=== PATIENT | female | born 1955 | race Hispanic/Latino ===

== ENCOUNTER → 2017-08-26 | Outpatient (CLI) | payer OTHER | END | disposition home or self-care (01) | LOC: SHCH 15:57 | PROVIDERS: ATTEND Internal Medicine Cardiovascular Disease | DX: I31.3 Pericardial effusion (noninflammatory) (principal); R00.2 Palpitations | CPT/HCPCS: 93306 ==

== ENCOUNTER → 2018-01-16 | Outpatient (CLI) | payer OTHER | END | disposition home or self-care (01) | LOC: RAH 11:07 | PROVIDERS: ATTEND Internal Medicine | DX: J06.9 Acute upper respiratory infection, unspecified (principal) | CPT/HCPCS: 71046 ==

== ENCOUNTER → 2018-02-05 | Outpatient (CLI) | payer OTHER ==
[~2018-02-05] MED LIST: ALBUTEROL SULFATE 0.083% 2.5 MG/3 ML INH IH ONE
== END | disposition home or self-care (01) ==
LOC: RESP 08:41
PROVIDERS: ATTEND Internal Medicine
DX: J40 Bronchitis, not specified as acute or chronic (principal); J98.01 Acute bronchospasm
CPT/HCPCS: 94060; 94727; 94729

== ENCOUNTER 2018-04-13 22:56 | Emergency (ER) | payer OTHER ==
[2018-04-13] MEDS ORDERED: METOCLOPRAMIDE 10 MG/2 ML VIAL ONE (23:13)
[2018-04-13 23:53] LABS: BASOPHILS % (AUTO) 1.3 % (0.0-5.0); EOSINOPHILS % (AUTO) 2.1 % (0.0-8.0); LYMPHOCYTES % (AUTO) 17.9 % (21.0-51.0); MEAN CORPUSCULAR HEMOGLOBIN 31.9 pg (27.0-33.0); MEAN CORPUSCULAR HGB CONC 34.1 g/dL (32.0-36.0); MEAN CORPUSCULAR VOLUME 93.6 fL (79-99); NEUTROPHILS % (AUTO) 71.7 % (40.0-77.0); PLATELET COUNT (AUTO) 252 K/uL (130-400); RED BLOOD CELL COUNT(AUTO) 3.52 MIL/uL (4.00-5.50); RED CELL DISTRIBUTION WIDTH 13.7 % (11.0-15.5); WHITE BLOOD COUNT (AUTO) 9.1 K/uL (4.8-10.8)
[2018-04-13 23:54] LABS: APPEARANCE,URINE Clear (CLEAR); BILIRUBIN,URINE Negative (NEGATIVE); COLOR,URINE Yellow (YELLOW); GLUCOSE, URINE (UA) Negative (NEGATIVE); KETONES,URINE Negative (NEGATIVE); LEUKOCYTE ESTERASE ,URINE Trace (NEGATIVE); NITRATE,URINE Negative (NEGATIVE); OCCULT BLOOD,URINE Negative (NEGATIVE); PH,URINE 6.5 (5.0-8.0); PROTEIN,URINE Negative (NEGATIVE); UROBILINOGEN,URINE 0.2 mg/dL (0.2-1.0)
[2018-04-14 00:18] LABS: BACTERIA,URINE None Seen /HPF (None Seen); RBC,URINE None Seen /HPF (0-1); WBC,URINE 0-1 /HPF (0-1)
[2018-04-14] MEDS ORDERED: KETOROLAC TROMETHAMINE 30MG/ML ONE (00:19)
[2018-04-14 00:33] LABS: CREATININE 0.8 mg/dL (0.5-1.5)
[2018-04-14 00:38] LABS: ALBUMIN 3.4 g/dL (3.5-5.0); BILIRUBIN,TOTAL 0.2 mg/dL (0.2-1.0); TOTAL PROTEIN, SERUM 7.1 g/dL (6.0-8.3)
[2018-04-14] MEDS ORDERED: POTASSIUM CHLORIDE 20 MEQ ERTAB PO ONE (00:46)
== END 2018-04-14 01:06 | disposition home or self-care (01) ==
LOC: EDH 22:56
DX: R51 Headache (principal); H53.9 Unspecified visual disturbance; I10 Essential (primary) hypertension; E78.5 Hyperlipidemia, unspecified; E07.9 Disorder of thyroid, unspecified; Z98.51 Tubal ligation status
CPT/HCPCS: 36415 ×2; 70450; 80053; 81001; 85025; 96374; 96375; 99284; J1885; J2765

== ENCOUNTER → 2018-05-02 | Outpatient (CLI) | payer OTHER | END | disposition home or self-care (01) | LOC: SHCH 07:36 | PROVIDERS: ATTEND Internal Medicine Cardiovascular Disease | DX: I10 Essential (primary) hypertension (principal) | CPT/HCPCS: 93975 ==

== ENCOUNTER → 2018-05-08 | Outpatient (CLI) | payer OTHER ==
[~2018-05-08] MED LIST changes: -ALBUTEROL SULFATE 0.083% 2.5 MG/3 ML INH IH ONE; +IOHEXOL-350 50ML VIAL IV ONE; +IOHEXOL-350 75 ML VIAL IV ONE
== END | disposition home or self-care (01) ==
LOC: RAH 07:40
PROVIDERS: ATTEND Internal Medicine
DX: J40 Bronchitis, not specified as acute or chronic (principal)
CPT/HCPCS: 71260; Q9967

== ENCOUNTER 2018-12-16 22:20 | Emergency (ER) | payer OTHER ==
[2018-12-16] MEDS ORDERED: ASPIRIN 325 MG TABLET ONE (22:32)
[2018-12-16] MEDS ORDERED: HYDRALAZINE HCL 20 MG/ML VIAL ONE (23:05)
[2018-12-16] MEDS ORDERED: SODIUM CHLORIDE 0.9% 500ML 500 ML IV ONE (23:05)
[2018-12-16 23:10] LABS: BASOPHILS % (AUTO) 1.1 % (0.0-5.0); EOSINOPHILS % (AUTO) 3.2 % (0.0-8.0); HEMATOCRIT 37.9 % (36-48); LYMPHOCYTES % (AUTO) 24.6 % (21.0-51.0); MEAN CORPUSCULAR HEMOGLOBIN 31.8 pg (27.0-33.0); MEAN CORPUSCULAR HGB CONC 34.4 g/dL (32.0-36.0); MEAN CORPUSCULAR VOLUME 92.5 fL (79-99); MONOCYTES % (AUTO) 8.6 % (3.0-13.0); NEUTROPHILS % (AUTO) 62.5 % (40.0-77.0); PLATELET COUNT (AUTO) 268 K/uL (130-400); POTASSIUM 3.5 mmol/L (3.5-5.1); RED CELL DISTRIBUTION WIDTH 13.1 % (11.0-15.5); WHITE BLOOD COUNT (AUTO) 9.6 K/uL (4.8-10.8)
[2018-12-16 23:23] LABS: ALBUMIN 3.5 g/dL (3.5-5.0); BILIRUBIN,TOTAL 0.2 mg/dL (0.2-1.0); CREATININE 0.7 mg/dL (0.5-1.5); TOTAL PROTEIN, SERUM 6.9 g/dL (6.0-8.3)
[2018-12-16 23:51] LABS: B-TYPE NATRIURETIC PEPTIDE 143 pg/mL (0-100)
[2018-12-17 00:13] LABS: APPEARANCE,URINE Clear (CLEAR); BILIRUBIN,URINE Negative (NEGATIVE); COLOR,URINE Yellow (YELLOW); GLUCOSE, URINE (UA) Negative (NEGATIVE); KETONES,URINE Negative (NEGATIVE); LEUKOCYTE ESTERASE ,URINE Negative (NEGATIVE); NITRATE,URINE Negative (NEGATIVE); OCCULT BLOOD,URINE Negative (NEGATIVE); PH,URINE 7.5 (5.0-8.0); PROTEIN,URINE Negative (NEGATIVE)
[2018-12-17] MEDS ORDERED: SODIUM CHLORIDE 0.9% 1000ML 1,000 ML IV ONE (00:45)
== END 2018-12-17 03:12 | disposition home or self-care (01) ==
LOC: EDH 22:20
DX: R07.89 Other chest pain (principal); I10 Essential (primary) hypertension; E78.5 Hyperlipidemia, unspecified; E07.9 Disorder of thyroid, unspecified
CPT/HCPCS: 36415; 71045; 80053; 81003; 82550; 83880; 84484 ×2; 85025; 93005; 96365; 99285; J0360; J7030; J7040

== ENCOUNTER 2019-03-30 21:02 | Observation (INO) | payer OTHER ==
[~2019-03-30] VITALS: Ht 162.6 cm; Wt 112.4 kg
[2019-03-30 22:37] LABS: BASOPHILS % (AUTO) 0.4 % (0.0-5.0); EOSINOPHILS % (AUTO) 1.6 % (0.0-8.0); HEMATOCRIT 43.5 % (36-48); LYMPHOCYTES % (AUTO) 25.1 % (21.0-51.0); MEAN CORPUSCULAR HEMOGLOBIN 30.5 pg (27.0-33.0); MEAN CORPUSCULAR HGB CONC 33.3 g/dL (32.0-36.0); MEAN CORPUSCULAR VOLUME 91.4 fL (79-99); MONOCYTES % (AUTO) 7.4 % (3.0-13.0); NEUTROPHILS % (AUTO) 65.1 % (40.0-77.0); PLATELET COUNT (AUTO) 339 K/uL (130-400); RED BLOOD CELL COUNT(AUTO) 4.76 MIL/uL (4.00-5.50); RED CELL DISTRIBUTION WIDTH 12.4 % (11.0-15.5); WHITE BLOOD COUNT (AUTO) 13.1 K/uL (4.8-10.8)
[2019-03-30 22:52] LABS: CREATININE 0.7 mg/dL (0.5-1.5); POTASSIUM 3.3 mmol/L (3.5-5.1)
[2019-03-30 23:00] LABS: ALBUMIN 3.7 g/dL (3.5-5.0); BILIRUBIN,TOTAL 0.4 mg/dL (0.2-1.0); TOTAL PROTEIN, SERUM 7.6 g/dL (6.0-8.3)
[2019-03-30 23:01] LABS: INR 0.97 (0.85-1.15); PARTIAL THROMBOPLASTIN TIME 29.9 SEC (26.3-35.5); PROTHROMBIN TIME 10.2 SEC (9.6-11.6)
[2019-03-30] MEDS ORDERED: LACTULOSE 20 GM/30 ML UDCUP PO PRN (23:30)
[2019-03-30] MEDS ORDERED: NITROGLYCERIN 0.4 MG SL TAB SL PRN (23:30)
[2019-03-30] MEDS ORDERED: ACETAMINOPHEN 325 MG TAB PO PRN ×2 (23:30)
[2019-03-30] MEDS ORDERED: ONDANSETRON HCL 4 MG/2 ML VIAL IV PRN (23:30)
[2019-03-30 23:39] LABS: B-TYPE NATRIURETIC PEPTIDE 337 pg/mL (0-100)
[2019-03-31] VITALS (7 sets, daily range): BP systolic 116–152; BP diastolic 66–95
[2019-03-31] MEDS ORDERED: ATEN50TA PO ×2 (01:22)
[2019-03-31] MEDS ORDERED: APIX5TAB PO (01:22)
[2019-03-31] MEDS ORDERED: LOSA1TAB42 PO (01:22)
[2019-03-31] MEDS ORDERED: MULT1TAB70 PO (01:22)
[2019-03-31] MEDS ORDERED: AMLO5TAB9 PO (01:22)
[2019-03-31] MEDS ORDERED: LEVO75 PO (01:22)
[2019-03-31] MEDS ORDERED: FLEC100T3 PO (01:22)
[2019-03-31] MEDS ORDERED: PRAV40TA3 PO (01:22)
[2019-03-31] MEDS ORDERED: FURO20TA4 PO (01:22)
[2019-03-31] MEDS ORDERED: ESOM20CA31 PO (01:22)
--- NOTE | 2019-03-31 01:48 | NUR ---
HOME MEDS Paged [facility]EE[facility] Supervisor [employer] to advised pt.s home meds had been entered.
--- NOTE | 2019-03-31 01:58 | NUR ---
[employer] WORK SUPERVISOR Notified HEENA [employer] Consultant,as per Rafiq Rn from ER,Dr Guthrie wanted a 2 d echo in am,did not see order,HEENA said he will review the chart.Customs Consultant also aware pt.s a fib hr 115.Pt asymptomatic,as per report from Er Dr Guthrie does not want to order any new meds for now.
[2019-03-31] MEDS ORDERED: LIDOCAINE HCL-MPF 1% 2ML VIAL IV PRN (02:00)
[2019-03-31] MEDS ORDERED: POTASSIUM CHLORIDE 10% ELIXIR 20 MEQ/15 ML UDCUP PO PRN (02:00)
[2019-03-31] MEDS ORDERED: POTASSIUM CHLORIDE 10MEQ/100ML 100 ML IV PRN (02:00)
[2019-03-31 05:15] LABS: BASOPHILS % (AUTO) 0.4 % (0.0-5.0); EOSINOPHILS % (AUTO) 1.8 % (0.0-8.0); HEMATOCRIT 41.2 % (36-48); LYMPHOCYTES % (AUTO) 30.2 % (21.0-51.0); MEAN CORPUSCULAR HEMOGLOBIN 30.4 pg (27.0-33.0); MEAN CORPUSCULAR VOLUME 92.2 fL (79-99); NEUTROPHILS % (AUTO) 59.4 % (40.0-77.0); PLATELET COUNT (AUTO) 315 K/uL (130-400); RED BLOOD CELL COUNT(AUTO) 4.47 MIL/uL (4.00-5.50); RED CELL DISTRIBUTION WIDTH 12.6 % (11.0-15.5); WHITE BLOOD COUNT (AUTO) 9.2 K/uL (4.8-10.8)
[2019-03-31] MEDS ORDERED: LEVOTHYROXINE 75 MCG TABLET ONE (05:28)
[2019-03-31 05:38] LABS: CREATININE 0.7 mg/dL (0.5-1.5)
[2019-03-31 05:51] LABS: POTASSIUM 2.9 mmol/L (3.5-5.1)
--- NOTE | 2019-03-31 06:00 | NUR ---
HYPOKALEMIA Re K+ 2.9,k protocol initiated.
[2019-03-31] MEDS: POTASSIUM CHLORIDE 20 MEQ ERTAB PO PRN ×3 (06:01→14:16)
[2019-03-31] MEDS: LEVOTHYROXINE 75 MCG TABLET PO SCH (06:02)
[2019-03-31] MEDS ORDERED: FUROSEMIDE 20 MG TABLET PO SCH (09:00)
[2019-03-31] MEDS ORDERED: NON-FORMULARY MEDICATION 1 EACH (Losartan/Hydrochlorothiazide (Losartan-Hctz 100-12.5 mg T PO SCH (09:00)
[2019-03-31] MEDS ORDERED: HYDROCHLOROTHIAZIDE 25 MG TABLET PO SCH (09:00)
[2019-03-31] MEDS ORDERED: AMLODIPINE BESYLATE 5 MG TAB PO SCH (09:00)
[2019-03-31] MEDS ORDERED: LOSARTAN 100 MG TABLET PO SCH (09:00)
[2019-03-31] MEDS: APIXABAN 5 MG TABLET PO SCH ×2 (10:07→20:05)
[2019-03-31] MEDS: FAMOTIDINE 20MG TAB 20 MG TAB PO SCH ×2 (10:07→20:05)
[2019-03-31] MEDS: ASPIRIN 81MG TAB.CHEW PO SCH (10:25)
[2019-03-31] MEDS: METOPROLOL TARTRATE 1 MG/ML 5ML VIAL IV PRN ×2 (10:34→14:08)
[2019-03-31] MEDS ORDERED: METOPROLOL TARTRATE 25 MG TAB PO STA (14:26)
[2019-03-31] MEDS ORDERED: POTASSIUM CHLORIDE 20 MEQ ERTAB PO SCH (14:30)
[2019-03-31] MEDS ORDERED: METOPROLOL TARTRATE 1 MG/ML 5ML VIAL IV SCH (16:00)
--- NOTE | 2019-03-31 16:40 | NUR ---
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 Addendum: 04/01/19 at 1641 by DELMY GREEN RN CM Amended: Links added.
[2019-03-31] MEDS: FLECAINIDE ACETATE 100 MG TABLET PO SCH (20:05)
[2019-03-31] MEDS: METOPROLOL TARTRATE 50 MG TAB PO SCH (20:05)
[2019-03-31] MEDS ORDERED: ATORVASTATIN CALCIUM 20 MG TABLET PO SCH (21:00)
[2019-03-31] MEDS ORDERED: METOPROLOL TARTRATE 25 MG TAB PO SCH (21:00)
--- NOTE | 2019-03-31 22:02 | NUR ---
A FIB Received pt with tele a fib 130's.Pt asymptomatic.Due meds given,Denies chest pain or sob.Pt walking around the hallway with her .Will cont monitor.
--- NOTE | 2019-03-31 22:07 | NUR ---
HR Pt .s HR afib 112 now.
--- NOTE | 2019-04-01 00:33 | NUR ---
TELE Pt asleep,as per groundwater monitoring technician,heart rate goes up and down,right now a fib 80's.
[2019-04-01 03:58] VITALS: BP 131/68
--- NOTE | 2019-04-01 05:40 | NUR ---
SLEPT Pt slept well.Voiced no complaints of chest pain or discomfort.
[2019-04-01] MEDS: LEVOTHYROXINE 75 MCG TABLET PO SCH (05:54)
[2019-04-01 06:31] LABS: BASOPHILS % (AUTO) 0.4 % (0.0-5.0); EOSINOPHILS % (AUTO) 4.1 % (0.0-8.0); HEMATOCRIT 40.1 % (36-48); LYMPHOCYTES % (AUTO) 33.6 % (21.0-51.0); MEAN CORPUSCULAR HEMOGLOBIN 30.6 pg (27.0-33.0); MEAN CORPUSCULAR HGB CONC 33.2 g/dL (32.0-36.0); MEAN CORPUSCULAR VOLUME 92.4 fL (79-99); MONOCYTES % (AUTO) 8.2 % (3.0-13.0); NEUTROPHILS % (AUTO) 53.4 % (40.0-77.0); PLATELET COUNT (AUTO) 314 K/uL (130-400); RED BLOOD CELL COUNT(AUTO) 4.34 MIL/uL (4.00-5.50); RED CELL DISTRIBUTION WIDTH 12.9 % (11.0-15.5); WHITE BLOOD COUNT (AUTO) 7.1 K/uL (4.8-10.8)
[2019-04-01 06:33] LABS: BILIRUBIN,TOTAL 0.4 mg/dL (0.2-1.0); CREATININE 0.6 mg/dL (0.5-1.5); MAGNESIUM 2.2 mg/dL (1.80-2.40); POTASSIUM 3.6 mmol/L (3.5-5.1); TOTAL PROTEIN, SERUM 6.7 g/dL (6.0-8.3)
[2019-04-01] MEDS: POTASSIUM CHLORIDE 20 MEQ ERTAB PO PRN ×2 (06:52→10:56)
[2019-04-01 08:00] VITALS: BP 151/76
[2019-04-01] MEDS ORDERED: LOSARTAN 50 MG TABLET PO SCH ×2 (09:00)
[2019-04-01] MEDS ORDERED: AMILORIDE HCL 5 MG TABLET PO SCH (09:00)
[2019-04-01] MEDS ORDERED: HYDROCHLOROTHIAZIDE 25 MG TABLET PO SCH (09:00)
[2019-04-01] MEDS: APIXABAN 5 MG TABLET PO SCH (10:55)
[2019-04-01] MEDS: FAMOTIDINE 20MG TAB 20 MG TAB PO SCH (10:55)
[2019-04-01] MEDS: METOPROLOL TARTRATE 50 MG TAB PO SCH (10:56)
[2019-04-01] MEDS: FLECAINIDE ACETATE 100 MG TABLET PO SCH (10:57)
[2019-04-01] MEDS: ASPIRIN 81MG TAB.CHEW PO SCH (10:58)
[2019-04-01 11:47] VITALS: BP 127/76
[2019-04-01] MEDS ORDERED: ASPI-1005 PO (11:47)
[2019-04-01] MEDS ORDERED: AMIL5TAB8 PO (11:47)
[2019-04-01] MEDS ORDERED: Flecainide Acetate PO (11:47)
[2019-04-01] MEDS ORDERED: HYDR25TA PO (11:47)
[2019-04-01] MEDS ORDERED: METO50 PO (11:47)
[2019-04-01] MEDS ORDERED: LOSA50TA2 PO (11:47)
== END 2019-04-01 15:55 | disposition home or self-care (01) ==
LOC: EDH 21:02 → INTOOBSV 21:03 → EDHIP 21:03 → OBSVTOIN 21:03 → 4CH 03-31 00:30
PROVIDERS: ADMIT Family Medicine; ATTEND Family Medicine
DX: I47.1 Supraventricular tachycardia (principal); E87.6 Hypokalemia; I48.91 Unspecified atrial fibrillation; E66.9 Obesity, unspecified; I10 Essential (primary) hypertension; E03.9 Hypothyroidism, unspecified; E78.5 Hyperlipidemia, unspecified; Z79.82 Long term (current) use of aspirin; Z79.899 Other long term (current) drug therapy; Z79.02 Long term (current) use of antithrombotics/antiplatelets
CPT/HCPCS: 36415 ×3; 71045; 80048; 80053 ×2; 82550; 83735 ×2; 83880; 84132; 84443; 84484 ×3; 85025 ×3; 85610; 85730; 93005; 93306; 96365; 96375; 96376; 99284; A4510; G0378 ×40; J3490 ×4

== ENCOUNTER → 2019-04-15 | Outpatient (CLI) | payer OTHER ==
[~2019-04-15] MED LIST changes: +AMIL5TAB8 PO; +APIX5TAB PO; +ASPI-1005 PO; +ESOM20CA31 PO; +Flecainide Acetate PO; +HYDR25TA PO; -IOHEXOL-350 50ML VIAL IV ONE; -IOHEXOL-350 75 ML VIAL IV ONE; +LEVO75 PO; +LOSA50TA2 PO; +METO50 PO; +MULT1TAB70 PO; +PRAV40TA3 PO
== END | disposition home or self-care (01) ==
LOC: RAH 07:36
PROVIDERS: ATTEND Internal Medicine
DX: I11.9 Hypertensive heart disease without heart failure (principal); I48.91 Unspecified atrial fibrillation
CPT/HCPCS: 76770; 93975

== ENCOUNTER 2019-04-17 11:53 | Observation (INO) | payer OTHER ==
[~2019-04-17] VITALS: Ht 162.6 cm; Wt 110.7 kg
[2019-04-17] MEDS ORDERED: METOPROLOL TARTRATE 1 MG/ML 5ML VIAL IV ONE ×3 (12:18→18:45)
[2019-04-17] MEDS ORDERED: ASPIRIN 325 MG TABLET ONE (12:19)
[2019-04-17 12:37] LABS: BASOPHILS % (AUTO) 0.4 % (0.0-5.0); EOSINOPHILS % (AUTO) 2.9 % (0.0-8.0); HEMATOCRIT 43.4 % (36-48); LYMPHOCYTES % (AUTO) 25.8 % (21.0-51.0); MEAN CORPUSCULAR HEMOGLOBIN 30.5 pg (27.0-33.0); MEAN CORPUSCULAR HGB CONC 32.9 g/dL (32.0-36.0); MEAN CORPUSCULAR VOLUME 92.5 fL (79-99); MONOCYTES % (AUTO) 9.6 % (3.0-13.0); NEUTROPHILS % (AUTO) 61.1 % (40.0-77.0); PLATELET COUNT (AUTO) 303 K/uL (130-400); RED BLOOD CELL COUNT(AUTO) 4.69 MIL/uL (4.00-5.50); RED CELL DISTRIBUTION WIDTH 12.7 % (11.0-15.5)
[2019-04-17 12:55] LABS: INR 0.97 (0.85-1.15); PROTHROMBIN TIME 10.2 SEC (9.6-11.6)
[2019-04-17] MEDS ORDERED: ESMOLOL HCL 10 MG/ML 10 ML VIAL ONE (13:01)
[2019-04-17 13:02] LABS: B-TYPE NATRIURETIC PEPTIDE 405 pg/mL (0-100); CREATININE 0.7 mg/dL (0.5-1.5); POTASSIUM 4.1 mmol/L (3.5-5.1)
[2019-04-17 13:06] LABS: ALBUMIN 3.5 g/dL (3.5-5.0); BILIRUBIN,TOTAL 0.3 mg/dL (0.2-1.0); TOTAL PROTEIN, SERUM 7.9 g/dL (6.0-8.3)
[2019-04-17] MEDS ORDERED: DILTIAZEM HCL 125 MG/25 ML VIAL IV ONE (13:08)
[2019-04-17] MEDS ORDERED: SODIUM CHLORIDE 0.9% 100 ML IV ONE (13:08)
[2019-04-17] MEDS ORDERED: ESMOLOL HCL 2500 MG/NACL 250 ML IV PRN (13:30)
[2019-04-17] MEDS ORDERED: ONDANSETRON HCL 4 MG/2 ML VIAL IVP PRN (14:15)
[2019-04-17] MEDS ORDERED: ENOXAPARIN SODIUM 40 MG/0.4 ML SYRINGE SQ SCH (14:15)
[2019-04-17] MEDS ORDERED: ACETAMINOPHEN 325 MG TAB PO PRN (14:15)
[2019-04-17 14:17] LABS: APPEARANCE,URINE Clear (CLEAR); BILIRUBIN,URINE Negative (NEGATIVE); COLOR,URINE Yellow (YELLOW); GLUCOSE, URINE (UA) Negative (NEGATIVE); KETONES,URINE Negative (NEGATIVE); LEUKOCYTE ESTERASE ,URINE Trace (NEGATIVE); NITRATE,URINE Negative (NEGATIVE); OCCULT BLOOD,URINE Negative (NEGATIVE); PH,URINE 7.5 (5.0-8.0); PROTEIN,URINE Negative (NEGATIVE); UROBILINOGEN,URINE 0.2 mg/dL (0.2-1.0)
[2019-04-17 14:52] LABS: BACTERIA,URINE Rare /HPF (None Seen); RBC,URINE None Seen /HPF (0-1); WBC,URINE 0-1 /HPF (0-1)
[2019-04-17 14:53] LABS: SQUAMOUS EPITHELIAL CELL,UR 0-2 /HPF (0-2)
[2019-04-17] MEDS ORDERED: METOPROLOL TARTRATE 50 MG TAB ONE (19:11)
[2019-04-17] MEDS: METOPROLOL TARTRATE 50 MG TAB PO SCH (21:00)
[2019-04-17] MEDS: FLECAINIDE ACETATE 100 MG TABLET PO SCH (21:00)
[2019-04-17] MEDS ORDERED: DILTIAZEM 125MG+100 ML NS 125 ML IV SCH (21:30)
[2019-04-17] MEDS ORDERED: METOPROLOL TARTRATE 1 MG/ML 5ML VIAL IV PRN (21:30)
[2019-04-17] MEDS: ATORVASTATIN CALCIUM 10 MG TABLET PO SCH (22:40)
[2019-04-17] MEDS: FAMOTIDINE/PF 20 MG/2 ML VIAL IV SCH (22:40)
[2019-04-17 23:00] VITALS: BP 159/92
[2019-04-18 03:56] VITALS: BP 120/63
[2019-04-18 04:01] LABS: BASOPHILS % (AUTO) 0.5 % (0.0-5.0); EOSINOPHILS % (AUTO) 3.4 % (0.0-8.0); HEMATOCRIT 38.7 % (36-48); LYMPHOCYTES % (AUTO) 28.4 % (21.0-51.0); MEAN CORPUSCULAR HEMOGLOBIN 30.2 pg (27.0-33.0); MEAN CORPUSCULAR HGB CONC 32.3 g/dL (32.0-36.0); MEAN CORPUSCULAR VOLUME 93.5 fL (79-99); MONOCYTES % (AUTO) 9.2 % (3.0-13.0); NEUTROPHILS % (AUTO) 58.2 % (40.0-77.0); PLATELET COUNT (AUTO) 284 K/uL (130-400); RED BLOOD CELL COUNT(AUTO) 4.14 MIL/uL (4.00-5.50); RED CELL DISTRIBUTION WIDTH 13.1 % (11.0-15.5); WHITE BLOOD COUNT (AUTO) 8.6 K/uL (4.8-10.8)
[2019-04-18 04:16] LABS: ALBUMIN 3.1 g/dL (3.5-5.0); BILIRUBIN,TOTAL 0.3 mg/dL (0.2-1.0); CREATININE 0.8 mg/dL (0.5-1.5); POTASSIUM 3.8 mmol/L (3.5-5.1); TOTAL PROTEIN, SERUM 6.7 g/dL (6.0-8.3)
[2019-04-18] MEDS: LEVOTHYROXINE 75 MCG TABLET PO SCH (06:46)
[2019-04-18 07:50] VITALS: BP 145/89
[2019-04-18] MEDS: ASPIRIN 81MG TAB.CHEW PO SCH (09:00)
[2019-04-18] MEDS ORDERED: ENOXAPARIN SODIUM 40 MG/0.4 ML SYRINGE SQ SCH (09:00)
[2019-04-18] MEDS: FAMOTIDINE/PF 20 MG/2 ML VIAL IV SCH ×2 (09:00→20:22)
[2019-04-18] MEDS: FLECAINIDE ACETATE 100 MG TABLET PO SCH ×2 (09:04→20:23)
[2019-04-18] MEDS: APIXABAN 5 MG TABLET PO SCH ×2 (09:04→20:23)
[2019-04-18] MEDS: AMILORIDE HCL 5 MG TABLET PO SCH (09:04)
[2019-04-18] MEDS: METOPROLOL TARTRATE 50 MG TAB PO SCH ×2 (09:05→20:22)
[2019-04-18] MEDS: HYDROCHLOROTHIAZIDE 25 MG TABLET PO SCH (09:05)
[2019-04-18] MEDS: LOSARTAN 50 MG TABLET PO SCH (09:05)
[2019-04-18 11:30] VITALS: BP 132/70
[2019-04-18 15:30] VITALS: BP 151/82
--- NOTE | 2019-04-18 16:58 | NUR ---
DR. Carrie DAWSON IN ROOM SPEAKING WITH PT. AND VISITORS AT BEDSIDE RE:PLAN OF CARE.
[2019-04-18 20:03] VITALS: BP 152/74
[2019-04-18] MEDS: ATORVASTATIN CALCIUM 10 MG TABLET PO SCH (20:23)
[2019-04-18 23:33] VITALS: BP 126/56
[2019-04-19 04:16] VITALS: BP 144/68
[2019-04-19 04:32] VITALS: BP 139/65
[2019-04-19 05:11] LABS: BASOPHILS % (AUTO) 0.4 % (0.0-5.0); EOSINOPHILS % (AUTO) 4.2 % (0.0-8.0); HEMATOCRIT 35.8 % (36-48); MEAN CORPUSCULAR HEMOGLOBIN 30.8 pg (27.0-33.0); MEAN CORPUSCULAR HGB CONC 33.5 g/dL (32.0-36.0); NEUTROPHILS % (AUTO) 56.1 % (40.0-77.0); PLATELET COUNT (AUTO) 246 K/uL (130-400); RED BLOOD CELL COUNT(AUTO) 3.89 MIL/uL (4.00-5.50); RED CELL DISTRIBUTION WIDTH 12.9 % (11.0-15.5); WHITE BLOOD COUNT (AUTO) 7.2 K/uL (4.8-10.8)
[2019-04-19 05:51] LABS: ALBUMIN 2.9 g/dL (3.5-5.0); BILIRUBIN,TOTAL 0.4 mg/dL (0.2-1.0); CREATININE 0.7 mg/dL (0.5-1.5); MAGNESIUM 2.4 mg/dL (1.80-2.40); POTASSIUM 3.8 mmol/L (3.5-5.1); TOTAL PROTEIN, SERUM 6.4 g/dL (6.0-8.3)
[2019-04-19] MEDS: LEVOTHYROXINE 75 MCG TABLET PO SCH (06:14)
[2019-04-19 07:30] VITALS: BP 154/79
[2019-04-19] MEDS: FAMOTIDINE/PF 20 MG/2 ML VIAL IV SCH (09:00)
[2019-04-19] MEDS: METOPROLOL TARTRATE 50 MG TAB PO SCH (09:35)
[2019-04-19] MEDS: FLECAINIDE ACETATE 100 MG TABLET PO SCH (09:35)
[2019-04-19] MEDS: HYDROCHLOROTHIAZIDE 25 MG TABLET PO SCH (09:35)
[2019-04-19] MEDS: AMILORIDE HCL 5 MG TABLET PO SCH (09:36)
[2019-04-19] MEDS: APIXABAN 5 MG TABLET PO SCH (09:36)
[2019-04-19] MEDS: LOSARTAN 50 MG TABLET PO SCH (09:36)
[2019-04-19] MEDS: ASPIRIN 81MG TAB.CHEW PO SCH (09:36)
[2019-04-19 11:30] VITALS: BP 148/87
--- NOTE | 2019-04-19 12:46 | NUR ---
DC PLAN VISITED WITH PATIENT. PATIENT LIVES WITH SPOUSE. INDEPENDENT ABLE TO PERFORM ADL'S. PATIENT HAS NO SERVICES OR DME'S. FEELS SAFE TO RETURN HOME. Addendum: 04/19/19 at 1247 by BASILIO RAE RN CM Amended: Links added.
== END 2019-04-19 17:50 | disposition home or self-care (01) ==
LOC: EDH 11:53 → EDHIP 14:06 → INTOOBSV 14:06 → 2DH 21:44
PROVIDERS: ADMIT Internal Medicine; ATTEND Internal Medicine
DX: I49.8 Other specified cardiac arrhythmias (principal); R00.0 Tachycardia, unspecified; I48.91 Unspecified atrial fibrillation; I11.0 Hypertensive heart disease with heart failure; E03.9 Hypothyroidism, unspecified; E78.5 Hyperlipidemia, unspecified; D68.59 Other primary thrombophilia; E66.9 Obesity, unspecified; Z79.01 Long term (current) use of anticoagulants; Z79.899 Other long term (current) drug therapy; Z68.41 Body mass index [BMI] 40.0-44.9, adult
CPT/HCPCS: 36415 ×3; 71045; 76770; 80053 ×3; 81001; 82550; 83735; 83880; 84484; 85025 ×3; 85610; 85730; 93005 ×2; 93975; 96372; 96374; 96376; 99291; A6450; G0378 ×52; J1650; J3490 ×9

== ENCOUNTER → 2019-05-19 | Outpatient (CLI) | payer OTHER ==
[~2019-05-19] MED LIST changes: -ASPI-1005 PO; -Flecainide Acetate PO
[2019-05-19 12:56] LABS: CREATININE 0.7 mg/dL (0.5-1.5)
== END | disposition home or self-care (01) ==
LOC: LAB 11:51
PROVIDERS: ATTEND Internal Medicine
DX: N28.1 Cyst of kidney, acquired (principal); R93.89 Abnormal findings on diagnostic imaging of other specified body structures; Z80.51 Family history of malignant neoplasm of kidney
CPT/HCPCS: 36415; 82565; 84520

== ENCOUNTER → 2019-05-21 | Outpatient (CLI) | payer OTHER | END | disposition home or self-care (01) | LOC: RAH 07:36 | PROVIDERS: ATTEND Internal Medicine | DX: D35.00 Benign neoplasm of unspecified adrenal gland (principal); I70.8 Atherosclerosis of other arteries; N28.1 Cyst of kidney, acquired; R93.89 Abnormal findings on diagnostic imaging of other specified body structures; J98.11 Atelectasis; K44.9 Diaphragmatic hernia without obstruction or gangrene; Z80.51 Family history of malignant neoplasm of kidney | CPT/HCPCS: 74176 ==

== ENCOUNTER → 2019-08-03 | Outpatient (CLI) | payer OTHER | END | disposition home or self-care (01) | LOC: OIH 11:25 | PROVIDERS: ATTEND Internal Medicine Cardiovascular Disease | DX: Z13.6 Encounter for screening for cardiovascular disorders (principal); I25.10 Atherosclerotic heart disease of native coronary artery without angina pectoris | CPT/HCPCS: 75571 ==

== ENCOUNTER → 2019-08-04 | Outpatient (CLI) | payer OTHER ==
[~2019-08-04] MED LIST changes: +REGADENOSON 0.4 MG/5 ML PF SYG IVP SCH
== END | disposition home or self-care (01) ==
LOC: SHCH 12:48
PROVIDERS: ATTEND Internal Medicine Cardiovascular Disease
DX: R07.9 Chest pain, unspecified (principal)
CPT/HCPCS: 78452; 93017; 96374; A9500 ×2; J2785

== ENCOUNTER 2020-03-14 17:17 | Inpatient (IN) | payer OTHER ==
[~2020-03-14] VITALS: Ht 162.6 cm; Wt 112.9 kg
[~2020-03-14 17:17] MED LIST changes: +MULT-660 PO; -MULT1TAB70 PO; -REGADENOSON 0.4 MG/5 ML PF SYG IVP SCH
[2020-03-14 18:01] LABS: BASOPHILS % (AUTO) 0.5 % (0.0-5.0); EOSINOPHILS % (AUTO) 2.4 % (0.0-8.0); HEMATOCRIT 37.1 % (36-48); LYMPHOCYTES % (AUTO) 28.3 % (21.0-51.0); MEAN CORPUSCULAR HEMOGLOBIN 31.5 pg (27.0-33.0); MEAN CORPUSCULAR HGB CONC 33.4 g/dL (32.0-36.0); MEAN CORPUSCULAR VOLUME 94.2 fL (79-99); MONOCYTES % (AUTO) 8.8 % (3.0-13.0); NEUTROPHILS % (AUTO) 59.7 % (40.0-77.0); PLATELET COUNT (AUTO) 243 K/uL (130-400); RED BLOOD CELL COUNT(AUTO) 3.94 MIL/uL (4.00-5.50); RED CELL DISTRIBUTION WIDTH 12.7 % (11.0-15.5); WHITE BLOOD COUNT (AUTO) 7.8 K/uL (4.8-10.8)
[2020-03-14] MEDS ORDERED: ACETAMINOPHEN EXTRA STRENGTH 500 MG TABLET ONE (18:11)
[2020-03-14] MEDS ORDERED: NITROGLYCERIN 0.4 MG SL TAB SL ONE (18:11)
[2020-03-14 18:18] LABS: CREATININE 0.8 mg/dL (0.5-1.5); POTASSIUM 3.8 mmol/L (3.5-5.1)
[2020-03-14 18:22] LABS: ALBUMIN 3.3 g/dL (3.5-5.0); BILIRUBIN,TOTAL 0.3 mg/dL (0.2-1.0); TOTAL PROTEIN, SERUM 6.8 g/dL (6.0-8.3)
[2020-03-14] MEDS ORDERED: MAG HYDROX/AL HYDROX/SIMETH ES 30 ML SUSP UDCUP ONE (19:13)
[2020-03-14] MEDS ORDERED: ONDANSETRON HCL 4 MG/2 ML VIAL IV PRN ×3 (19:45)
[2020-03-14] MEDS ORDERED: NITROGLYCERIN 0.4 MG SL TAB SL PRN (19:45)
[2020-03-14] MEDS ORDERED: ACETAMINOPHEN 325 MG TAB PO PRN ×2 (19:45)
[2020-03-14] MEDS ORDERED: METOPROLOL TARTRATE 50 MG TAB ONE (21:10)
[2020-03-14] MEDS ORDERED: FAMOTIDINE 20MG TAB 20 MG TAB ONE (21:10)
[2020-03-15 06:40] LABS: BASOPHILS % (AUTO) 0.8 % (0.0-5.0); HEMATOCRIT 36.2 % (36-48); LYMPHOCYTES % (AUTO) 27.1 % (21.0-51.0); MEAN CORPUSCULAR HEMOGLOBIN 31.1 pg (27.0-33.0); MEAN CORPUSCULAR HGB CONC 32.9 g/dL (32.0-36.0); MEAN CORPUSCULAR VOLUME 94.5 fL (79-99); MONOCYTES % (AUTO) 8.5 % (3.0-13.0); NEUTROPHILS % (AUTO) 60.3 % (40.0-77.0); PLATELET COUNT (AUTO) 230 K/uL (130-400); RED BLOOD CELL COUNT(AUTO) 3.83 MIL/uL (4.00-5.50); RED CELL DISTRIBUTION WIDTH 12.8 % (11.0-15.5); WHITE BLOOD COUNT (AUTO) 6.2 K/uL (4.8-10.8)
[2020-03-15 06:55] LABS: HEMOGLOBIN A1C 6.2 % (4.0-6.0)
[2020-03-15 07:19] LABS: CREATINE KINASE, TOTAL 195 U/L (21-232); MYOGLOBIN 46 ng/mL (10-92); TROPONIN I < 0.04 ng/mL (0.00-0.06)
[2020-03-15 07:21] LABS: BILIRUBIN,TOTAL 0.5 mg/dL (0.2-1.0); CREATININE 0.7 mg/dL (0.5-1.5); MAGNESIUM 2.2 mg/dL (1.80-2.40); POTASSIUM 3.8 mmol/L (3.5-5.1); THYROID STIMULATING HORMONE 2.7 uIU/mL (0.36-3.74); TOTAL PROTEIN, SERUM 6.4 g/dL (6.0-8.3)
[2020-03-15 07:45] VITALS: BP 199/114
[2020-03-15] MEDS: FAMOTIDINE 20MG TAB 20 MG TAB PO SCH ×2 (08:59→21:08)
[2020-03-15] MEDS ORDERED: LOSARTAN 50 MG TABLET PO SCH ×2 (09:00→14:30)
[2020-03-15] MEDS ORDERED: ASPIRIN 81MG TAB.CHEW PO SCH (09:00)
[2020-03-15] MEDS: METOPROLOL TARTRATE 50 MG TAB PO SCH ×2 (09:00→21:10)
[2020-03-15] MEDS: APIXABAN 5 MG TABLET PO SCH ×2 (09:00→21:10)
[2020-03-15] MEDS: LEVOTHYROXINE 75 MCG TABLET PO SCH (09:01)
[2020-03-15] MEDS: DRONEDARONE HYDROCHLORIDE 400 MG TABLET PO SCH ×2 (09:32→21:08)
[2020-03-15 09:35] VITALS: BP 147/92
[2020-03-15 11:00] VITALS: BP 192/99
[2020-03-15] MEDS: NIFEDIPINE 10 MG CAP PO SCH ×3 (12:49→21:10)
[2020-03-15] MEDS ORDERED: CETI10TA57 PO (12:54)
[2020-03-15] MEDS ORDERED: DRON400T2 PO (12:54)
[2020-03-15] MEDS ORDERED: LOSA100T58 PO (12:54)
[2020-03-15] MEDS ORDERED: HYDROCHLOROTHIAZIDE 25 MG TABLET PO SCH (14:30)
[2020-03-15 15:17] VITALS: BP 147/90
[2020-03-15 20:05] VITALS: BP 170/98
[2020-03-15 23:41] VITALS: BP 144/80
[2020-03-16 03:56] VITALS: BP 132/87
[2020-03-16] MEDS: LEVOTHYROXINE 75 MCG TABLET PO SCH (06:54)
[2020-03-16 08:00] VITALS: BP_SYST 125; BP_SYST 148; BP_DIAS 70; BP_DIAS 96
[2020-03-16] MEDS ORDERED: HYDROCHLOROTHIAZIDE 25 MG TABLET PO SCH (09:00)
[2020-03-16] MEDS ORDERED: LOSARTAN 100 MG TABLET PO SCH (09:00)
[2020-03-16] MEDS: DRONEDARONE HYDROCHLORIDE 400 MG TABLET PO SCH (10:29)
[2020-03-16] MEDS: APIXABAN 5 MG TABLET PO SCH (10:30)
[2020-03-16] MEDS: FAMOTIDINE 20MG TAB 20 MG TAB PO SCH (10:30)
[2020-03-16] MEDS: NIFEDIPINE 10 MG CAP PO SCH (10:30)
[2020-03-16] MEDS: METOPROLOL TARTRATE 50 MG TAB PO SCH (10:31)
[2020-03-16 11:00] VITALS: BP 167/85
[2020-03-16] MEDS ORDERED: METOPROLOL TARTRATE 50 MG TAB PO SCH ×2 (11:45→21:00)
[2020-03-16 15:20] VITALS: BP 145/80
[2020-03-16] MEDS ORDERED: METO50 PO (16:15)
== END 2020-03-16 19:00 | disposition home or self-care (01) | DRG 309 ==
LOC: EDH 17:17 → EDHIP 19:36 → 4AH 03-15 07:45
PROVIDERS: ADMIT Hospitalist; ATTEND Hospitalist
DX: I48.0 Paroxysmal atrial fibrillation (principal); Z68.41 Body mass index [BMI] 40.0-44.9, adult; I10 Essential (primary) hypertension; Z20.828 Contact with and (suspected) exposure to other viral communicable diseases; E03.9 Hypothyroidism, unspecified; E66.01 Morbid (severe) obesity due to excess calories; E78.5 Hyperlipidemia, unspecified; I25.10 Atherosclerotic heart disease of native coronary artery without angina pectoris; I70.0 Atherosclerosis of aorta; Z79.01 Long term (current) use of anticoagulants; Z79.899 Other long term (current) drug therapy; Z83.3 Family history of diabetes mellitus
CPT/HCPCS: 36415; 71045; 80053; 80061; 82550; 83036; 83735; 83874; 83880; 84443; 84484; 85025; 87426; 93005; G0378; U0003

== ENCOUNTER → 2020-04-08 | Outpatient (CLI) | payer OTHER ==
[~2020-04-08] MED LIST changes: -AMIL5TAB8 PO; +CETI10TA57 PO; +DRON400T2 PO; +LOSA100T58 PO; -LOSA50TA2 PO
== END | disposition home or self-care (01) ==
LOC: RAH 12:50
PROVIDERS: ATTEND Internal Medicine Cardiovascular Disease
DX: E04.2 Nontoxic multinodular goiter (principal)
CPT/HCPCS: 76536

== ENCOUNTER 2021-09-18 22:21 | Emergency (ER) | payer OTHER ==
[~2021-09-18 22:21] MED LIST changes: -DRON400T2 PO; +DRON400T7 PO
[2021-09-18] MEDS ORDERED: HYDROCODONE/ACETAMINOPHEN 5/325 MG TAB PO ONE ×2 (23:00)
[2021-09-18] MEDS ORDERED: ACET-2079 PO (23:59)
[2021-09-19 00:25] VITALS: BP 171/81
== END 2021-09-19 00:35 | disposition home or self-care (01) ==
LOC: EDH 22:21
DX: S01.01XA Laceration without foreign body of scalp, initial encounter (principal); M53.3 Sacrococcygeal disorders, not elsewhere classified; I48.91 Unspecified atrial fibrillation; Z79.01 Long term (current) use of anticoagulants; Z79.899 Other long term (current) drug therapy; W01.0XXA Fall on same level from slipping, tripping and stumbling without subsequent striking against object, initial encounter; Y93.89 Activity, other specified; Y92.89 Other specified places as the place of occurrence of the external cause; Y99.8 Other external cause status
CPT/HCPCS: 12001; 70450; 72220

== ENCOUNTER → 2021-10-06 | Outpatient (CLI) | payer OTHER ==
[~2021-10-06] MED LIST changes: +ACET-2079 PO
== END | disposition home or self-care (01) ==
LOC: SHCH 12:31
PROVIDERS: ATTEND Internal Medicine Cardiovascular Disease
DX: I48.0 Paroxysmal atrial fibrillation (principal); I11.9 Hypertensive heart disease without heart failure; E03.9 Hypothyroidism, unspecified; E66.9 Obesity, unspecified; Z98.890 Other specified postprocedural states
CPT/HCPCS: 93306

== ENCOUNTER 2021-12-24 04:38 | Emergency (ER) | payer OTHER ==
[~2021-12-24] VITALS: Ht 162.6 cm; Wt 112.0 kg
[2021-12-24 05:24] LABS: BASOPHILS % (AUTO) 0.4 % (0.0-5.0); EOSINOPHILS % (AUTO) 2.1 % (0.0-8.0); LYMPHOCYTES % (AUTO) 22.6 % (21.0-51.0); MEAN CORPUSCULAR HEMOGLOBIN 31.2 pg (27.0-33.0); MEAN CORPUSCULAR VOLUME 91.9 fL (79-99); MONOCYTES % (AUTO) 8.7 % (3.0-13.0); PLATELET COUNT (AUTO) 282 K/uL (130-400); RED BLOOD CELL COUNT(AUTO) 4.68 MIL/uL (4.00-5.50); RED CELL DISTRIBUTION WIDTH 12.8 % (11.0-15.5); WHITE BLOOD COUNT (AUTO) 10.7 K/uL (4.8-10.8)
[2021-12-24 05:30] LABS: AMPHET/METH SCREEN,URINE NEGATIVE (NEGATIVE); BARBITURATE SCREEN, URINE NEGATIVE (NEGATIVE); BENZODIAZEPINES SCREEN,URINE NEGATIVE (NEGATIVE); CANNABINOID SCREEN,URINE NEGATIVE (NEGATIVE); COCAINE SCREEN,URINE NEGATIVE (NEGATIVE); PHENCYCLIDINE SCREEN,URINE NEGATIVE (NEGATIVE)
[2021-12-24 05:35] LABS: CREATININE 0.7 mg/dL (0.5-1.5)
[2021-12-24 05:39] LABS: ALBUMIN 3.5 g/dL (3.5-5.0); TOTAL PROTEIN, SERUM 7.7 g/dL (6.0-8.3)
[2021-12-24] MEDS ORDERED: DILTIAZEM 25MG INJ IVP ONE (06:00)
[2021-12-24] MEDS ORDERED: DILTIAZEM 125 MG/25 ML INJ IV ONE (06:02)
[2021-12-24 06:56] VITALS: BP 146/90
== END 2021-12-24 07:53 | disposition home or self-care (01) ==
LOC: EDH 04:38
DX: I48.91 Unspecified atrial fibrillation (principal); I48.92 Unspecified atrial flutter; E78.00 Pure hypercholesterolemia, unspecified; I10 Essential (primary) hypertension; Z98.890 Other specified postprocedural states; Z79.899 Other long term (current) drug therapy; Z79.01 Long term (current) use of anticoagulants
CPT/HCPCS: 99285; 96374; 71045; 84484; 80053; 80305; 85025; 36415; 93005 ×2; J3490

== ENCOUNTER 2022-01-25 06:57 | Day surgery (SDC) | payer OTHER ==
[2022-01-23 12:35] LABS: BASOPHILS % (AUTO) 0.6 % (0.0-5.0); EOSINOPHILS % (AUTO) 2.9 % (0.0-8.0); HEMATOCRIT 40.2 % (36-48); LYMPHOCYTES % (AUTO) 24.5 % (21.0-51.0); MEAN CORPUSCULAR HEMOGLOBIN 31.1 pg (27.0-33.0); MEAN CORPUSCULAR HGB CONC 33.1 g/dL (32.0-36.0); MEAN CORPUSCULAR VOLUME 94.1 fL (79-99); MONOCYTES % (AUTO) 7.4 % (3.0-13.0); NEUTROPHILS % (AUTO) 64.5 % (40.0-77.0); PLATELET COUNT (AUTO) 263 K/uL (130-400); RED BLOOD CELL COUNT(AUTO) 4.27 MIL/uL (4.00-5.50); RED CELL DISTRIBUTION WIDTH 12.8 % (11.0-15.5); WHITE BLOOD COUNT (AUTO) 6.9 K/uL (4.8-10.8)
[2022-01-23 12:57] LABS: CREATININE 0.7 mg/dL (0.5-1.5); POTASSIUM 4.2 mmol/L (3.5-5.1)
[2022-01-23 13:36] LABS: INR 1.1 (0.85-1.15); PROTHROMBIN TIME 11.9 SEC (9.6-11.6)
[2022-01-23 13:37] LABS: PARTIAL THROMBOPLASTIN TIME 34.2 SEC (26.3-35.5)
[2022-01-24 13:39] VITALS: BP 168/96
[~2022-01-25] VITALS: Ht 162.6 cm; Wt 112.8 kg
[~2022-01-25 06:57] MED LIST changes: -ACET-2079 PO; +AMLO-257 PO; -APIX5TAB PO; -DRON400T7 PO; +FLEC150T2 PO; +HYDR12.54 PO; -HYDR25TA PO; +MAGN400C PO; +METO100T14 PO; -METO50 PO; +MONT-39 PO; -MULT-660 PO; +MVIT PO; +POTA99CA PO; +RIVA20TA PO; +VITAMIN D3 PO
== END 2022-01-25 07:55 | disposition home or self-care (01) ==
LOC: DAH 06:57
PROVIDERS: ATTEND Internal Medicine Cardiovascular Disease
DX: I48.19 Other persistent atrial fibrillation (principal); Z20.822 Contact with and (suspected) exposure to COVID-19; I10 Essential (primary) hypertension; E03.9 Hypothyroidism, unspecified; E66.9 Obesity, unspecified; Z79.890 Hormone replacement therapy; Z98.890 Other specified postprocedural states; Z98.51 Tubal ligation status; Z82.49 Family history of ischemic heart disease and other diseases of the circulatory system; Z80.51 Family history of malignant neoplasm of kidney; Z79.899 Other long term (current) drug therapy; Z79.01 Long term (current) use of anticoagulants; Z68.41 Body mass index [BMI] 40.0-44.9, adult; Z53.8 Procedure and treatment not carried out for other reasons
CPT/HCPCS: 36415; 80048; 85025; 85610; 85730; 87426; 93005

== ENCOUNTER 2022-04-01 00:53 | Emergency (ER) | payer OTHER ==
[~2022-04-01] VITALS: Ht 162.6 cm; Wt 114.0 kg
[2022-04-01 01:21] LABS: BASOPHILS % (AUTO) 0.2 % (0.0-5.0); EOSINOPHILS % (AUTO) 1.4 % (0.0-8.0); HEMATOCRIT 36.4 % (36-48); LYMPHOCYTES % (AUTO) 32.7 % (21.0-51.0); MEAN CORPUSCULAR HEMOGLOBIN 31.3 pg (27.0-33.0); MEAN CORPUSCULAR HGB CONC 33.2 g/dL (32.0-36.0); MEAN CORPUSCULAR VOLUME 94.1 fL (79-99); MONOCYTES % (AUTO) 3.4 % (3.0-13.0); NEUTROPHILS % (AUTO) 61.9 % (40.0-77.0); NUCLEATED RED BLOOD CELLS 0.4 % (0.0-0.19); PLATELET COUNT (AUTO) 243 K/uL (130-400); RED BLOOD CELL COUNT(AUTO) 3.87 MIL/uL (4.00-5.50); RED CELL DISTRIBUTION WIDTH 14.2 % (11.0-15.5)
[2022-04-01] MEDS ORDERED: METOPROLOL TARTRATE 1 MG/ML 5ML VIAL IV ONE ×2 (01:24→01:30)
[2022-04-01 01:29] LABS: CREATININE 0.9 mg/dL (0.5-1.5)
[2022-04-01 01:34] LABS: TOTAL PROTEIN, SERUM 7.4 g/dL (6.0-8.3)
[2022-04-01] MEDS ORDERED: DILTIAZEM 50MG VIAL IV ONE (01:48)
[2022-04-01] MEDS ORDERED: 0.9%NACL 1000ML 1,000 ML IV ONE (02:00)
[2022-04-01] MEDS ORDERED: DILTIAZEM 50MG VIAL IV SCH (02:30)
[2022-04-01 02:56] VITALS: BP 124/58
[2022-04-01] MEDS ORDERED: DILT30TA38 PO (03:04)
== END 2022-04-01 03:28 | disposition home or self-care (01) ==
LOC: EDH 00:53
DX: I48.91 Unspecified atrial fibrillation (principal); Z85.3 Personal history of malignant neoplasm of breast; J40 Bronchitis, not specified as acute or chronic; Z98.890 Other specified postprocedural states
CPT/HCPCS: 99285; 83735; 84484; 80053; 85025; 36415; 71045; 96374; 96375; 93005 ×2; J3490 ×2

== ENCOUNTER 2022-05-04 06:26 | Day surgery (SDC) | payer OTHER ==
[2022-05-02 13:03] VITALS: BP 156/88
[2022-05-02 13:13] LABS: HEMATOCRIT 32.4 % (36-48); LYMPHOCYTES % (AUTO) 8.4 % (21.0-51.0); MEAN CORPUSCULAR HEMOGLOBIN 31.8 pg (27.0-33.0); MEAN CORPUSCULAR VOLUME 96.1 fL (79-99); MONOCYTES % (AUTO) 11.3 % (3.0-13.0); NEUTROPHILS % (AUTO) 79.8 % (40.0-77.0); NUCLEATED RED BLOOD CELLS 0.5 % (0.0-0.19); PLATELET COUNT (AUTO) 158 K/uL (130-400); RED BLOOD CELL COUNT(AUTO) 3.37 MIL/uL (4.00-5.50); RED CELL DISTRIBUTION WIDTH 15.8 % (11.0-15.5); WHITE BLOOD COUNT (AUTO) 4.2 K/uL (4.8-10.8)
[2022-05-02 13:20] LABS: CREATININE 0.7 mg/dL (0.5-1.5); POTASSIUM 3.9 mmol/L (3.5-5.1)
[~2022-05-04] VITALS: Ht 157.5 cm; Wt 65.0 kg
[2022-05-04] VITALS (9 sets, daily range): BP systolic 150–161; BP diastolic 72–87
[~2022-05-04 06:26] MED LIST changes: +AMIO200T68 PO; +DILT120C92 PO; -FLEC150T2 PO; +FURO20TA4 PO; -HYDR12.54 PO; -MAGN400C PO; -MONT-39 PO; +MULT-952 PO; -MVIT PO; -POTA99CA PO; -VITAMIN D3 PO
[2022-05-04] MEDS ORDERED: PROPOFOL 10 MG/ML 20ML VIAL IV ONE (08:20)
[2022-05-04] MEDS ORDERED: LIDOCAINE PF 100MG/5ML (2%) SYRINGE 5ML ONE (08:20)
== END 2022-05-04 10:00 | disposition home or self-care (01) ==
LOC: DAH 06:26
PROVIDERS: ATTEND Internal Medicine Cardiovascular Disease
DX: I48.19 Other persistent atrial fibrillation (principal); Z20.822 Contact with and (suspected) exposure to COVID-19; I10 Essential (primary) hypertension; E03.9 Hypothyroidism, unspecified; E66.9 Obesity, unspecified; R60.0 Localized edema; Z98.890 Other specified postprocedural states; Z98.51 Tubal ligation status; Z68.41 Body mass index [BMI] 40.0-44.9, adult; Z85.3 Personal history of malignant neoplasm of breast; Z82.49 Family history of ischemic heart disease and other diseases of the circulatory system; Z80.51 Family history of malignant neoplasm of kidney; Z79.890 Hormone replacement therapy; Z79.899 Other long term (current) drug therapy
CPT/HCPCS: 80048; 85025; 87426; 36415; 92960; 93005 ×2; A4223 ×3; A4222; J2001; J2704; A4215 ×2; A7002; A4221; A4663; A4216; J7030; A4606; 99156

== ENCOUNTER → 2023-10-24 | Outpatient (CLI) | payer OTHER ==
[~2023-10-24] MED LIST changes: +DILT120C78 PO; -DILT120C92 PO; -LOSA100T58 PO; +LOSA100T59 PO
== END | disposition home or self-care (01) ==
LOC: RAH 13:06
PROVIDERS: ATTEND Internal Medicine
DX: Z51.11 Encounter for antineoplastic chemotherapy (principal); I08.3 Combined rheumatic disorders of mitral, aortic and tricuspid valves; I11.9 Hypertensive heart disease without heart failure; E03.9 Hypothyroidism, unspecified; I48.91 Unspecified atrial fibrillation
CPT/HCPCS: 93306; 93356